=== PATIENT | male | born 1975 | race Caucasian/White ===

== ENCOUNTER 2021-08-28 14:16 | Inpatient (IN) | payer MEDICAID ==
[~2021-08-28] VITALS: Ht 188 cm; Wt 178.0 kg
[2021-08-28] MEDS ORDERED: DiphenhydrAMINE HCL 50 MG/ML VIAL IM ONE (14:45)
[2021-08-28] MEDS ORDERED: HALOPERIDOL LACTATE 5 MG/ML VIAL IM ONE (14:45)
[2021-08-28] MEDS ORDERED: LORazepam 2 MG/ML VIAL IM ONE (14:45)
[2021-08-28 15:42] LABS: COVID AG,FIA SOURCE NASOPHARYNGEAL
[2021-08-28] MEDS ORDERED: VANCOMYCIN HCL 1 GM/D5% WATER 200 ML IV ONE (15:45)
[2021-08-28 16:18] LABS: BASOPHILS % (AUTO) 0.4 % (0.0-2.0); EOSINOPHILS % (AUTO) 2.1 % (1.0-6.0); HEMATOCRIT 39.8 % (41-53); HEMOGLOBIN 13.4 g/dL (13.5-17.5); LYMPHOCYTES # (AUTO) 1.5 K/uL (1.0-4.8); LYMPHOCYTES % (AUTO) 20.2 % (22.0-44.0); MEAN CORPUSCULAR HEMOGLOBIN 29.7 pg (26.0-34.0); MEAN CORPUSCULAR HGB CONC 33.5 G/dL (31.0-37.0); MEAN CORPUSCULAR VOLUME 89 fL (80-100); MONOCYTES # (AUTO) 0.7 K/uL (0.1-1.0); MONOCYTES % (AUTO) 9.3 % (2.0-9.0); NEUTROPHILS # (AUTO) 5.2 K/uL (1.8-7.7); PLATELET COUNT (AUTO) 298 K/uL (150-450); RED CELL DISTRIBUTION WIDTH 14.1 % (11.5-14.5)
[2021-08-28 16:39] LABS: B-TYPE NATRIURETIC PEPTIDE 9 pg/mL (0-100)
[2021-08-28 16:41] LABS: ANION GAP 7 mmol/L (8-16); CALCIUM, TOTAL 9.1 mg/dL (8.8-10.5); CARBON DIOXIDE 28 mmol/L (22-29); CHLORIDE 104 mmol/L (98-107); GLOMERULAR FILTR. RATE CALC > 60 mL/min (>60); GLUCOSE,RANDOM 112 mg/dL (70-110); POTASSIUM 3.6 mmol/L (3.5-5.1); SODIUM SERUM 139 mmol/L (136-145); UREA NITROGEN, BLOOD 10 mg/dL (7-18)
[2021-08-28 16:56] LABS: ALANINE AMINOTRANSFERASE 18 U/L (12-78); ALBUMIN 3.5 g/dL (3.4-5.0); ALKALINE PHOSPHATASE 62 U/L (46-116); ASPARTATE AMINOTRANSFERASE 15 U/L (15-37); BILIRUBIN,TOTAL 0.4 mg/dL (0.1-1.0); C-REACTIVE PROTEIN QUANT 2.75 mg/dL (0.00-0.30); FREE T4 (FREE THYROXINE) 1.37 ng/dL (0.76-1.46); THYROID STIMULATING HORMONE 1.88 uIU/mL (0.36-3.74); TOTAL PROTEIN, SERUM 7.8 g/dL (6.4-8.2)
[2021-08-28 19:12] LABS: ERYTHROCYTE SEDIMENTATION RATE 24 MM/HR (0-15)
[2021-08-28] MEDS ORDERED: DOXYCYCLINE HYCLATE 100 MG TABLET PO ONE (19:15)
[2021-08-28 21:15] LABS: AMPHET/METH SCREEN,URINE POSITIVE (NEGATIVE); BARBITURATE SCREEN, URINE NEGATIVE (NEGATIVE); BENZODIAZEPINES SCREEN,URINE NEGATIVE (NEGATIVE); CANNABINOID SCREEN,URINE NEGATIVE (NEGATIVE); COCAINE SCREEN,URINE NEGATIVE (NEGATIVE); METHADONE SCREEN, URINE NEGATIVE (NEGATIVE); OPIATE SCREEN,URINE NEGATIVE (NEGATIVE)
[2021-08-28 21:16] LABS: PHENCYCLIDINE SCREEN,URINE NEGATIVE (NEGATIVE)
[2021-08-28] MEDS ORDERED: 0.9% SODIUM CHLORIDE 10 ML SYRINGE IVP PRN (21:45)
[2021-08-28] MEDS ORDERED: ACETAMINOPHEN 325 MG TABLET PO PRN (22:45)
[2021-08-28] MEDS ORDERED: ONDANSETRON HCL 4 MG/2 ML VIAL IVP PRN (22:45)
[2021-08-28] MEDS ORDERED: HYDROCODONE/ACETAMINOPHEN 5-325 MG TABLET PO PRN (22:45)
[2021-08-28] MEDS ORDERED: MORPHINE SULFATE 2 MG/ML SYRINGE IVP PRN (22:45)
[2021-08-28] MEDS ORDERED: MAGNESIUM HYDROXIDE SUSPENSION 30 ML UDCUP PO PRN (22:45)
[2021-08-28] MEDS ORDERED: BISACODYL 10 MG RECTAL RECTAL SUPPOSITORY PR PRN (22:45)
[2021-08-28] MEDS ORDERED: ZOLPIDEM TARTRATE 5 MG TABLET PO PRN (22:45)
[2021-08-28] MEDS ORDERED: VANCOMYCIN HCL 1.25 GM in DEXTROSE 5%-WATER 250 ML IV ONE (23:15)
[2021-08-29] MEDS: HEPARIN SODIUM,PORCINE 5,000 UNITS/ML VIAL SQ SCH ×4 (00:03→23:27)
[2021-08-29 05:41] LABS: BASOPHILS % (AUTO) 0.5 % (0.0-2.0); EOSINOPHILS % (AUTO) 3.9 % (1.0-6.0); HEMATOCRIT 39.6 % (41-53); HEMOGLOBIN 13.3 g/dL (13.5-17.5); LYMPHOCYTES # (AUTO) 1.6 K/uL (1.0-4.8); LYMPHOCYTES % (AUTO) 22.3 % (22.0-44.0); MEAN CORPUSCULAR HEMOGLOBIN 29.5 pg (26.0-34.0); MEAN CORPUSCULAR HGB CONC 33.5 G/dL (31.0-37.0); MEAN CORPUSCULAR VOLUME 88 fL (80-100); MONOCYTES # (AUTO) 0.7 K/uL (0.1-1.0); MONOCYTES % (AUTO) 9.5 % (2.0-9.0); NEUTROPHILS # (AUTO) 4.5 K/uL (1.8-7.7); NEUTROPHILS % (AUTO) 63.8 % (40.0-70.0); PLATELET COUNT (AUTO) 275 K/uL (150-450)
[2021-08-29 05:48] LABS: ALANINE AMINOTRANSFERASE 15 U/L (12-78); ALKALINE PHOSPHATASE 53 U/L (46-116); ANION GAP 5 mmol/L (8-16); ASPARTATE AMINOTRANSFERASE 24 U/L (15-37); BILIRUBIN,TOTAL 0.4 mg/dL (0.1-1.0); CALCIUM, TOTAL 8.6 mg/dL (8.8-10.5); CARBON DIOXIDE 32 mmol/L (22-29); CHLORIDE 105 mmol/L (98-107); CREATININE 0.94 mg/dL (0.60-1.30); GLOMERULAR FILTR. RATE CALC > 60 mL/min (>60); GLUCOSE,RANDOM 116 mg/dL (70-110); POTASSIUM 3.6 mmol/L (3.5-5.1); SODIUM SERUM 142 mmol/L (136-145); UREA NITROGEN, BLOOD 6 mg/dL (7-18)
[2021-08-29 08:30] VITALS: BP 131/84
[2021-08-29] MEDS: DOCUSATE SODIUM 100 MG CAPSULE PO SCH ×2 (09:17→20:22)
[2021-08-29] MEDS ORDERED: SODIUM CHLORIDE 0.9% 250 ML IV ONE (09:17)
[2021-08-29] MEDS: VANCOMYCIN HCL 1.25 GM in DEXTROSE 5%-WATER 250 ML IV SCH ×3 (09:18→23:27)
[2021-08-29] MEDS: PANTOPRAZOLE SODIUM 40 MG DR TABLET PO SCH (09:18)
[2021-08-29 11:00] VITALS: BP 128/82
[2021-08-29 15:31] VITALS: BP 142/74
[2021-08-29 19:30] VITALS: BP 131/94
[2021-08-30 05:15] VITALS: BP 131/91
[2021-08-30 07:50] LABS: ANION GAP 6 mmol/L (8-16); CALCIUM, TOTAL 8.8 mg/dL (8.8-10.5); CARBON DIOXIDE 30 mmol/L (22-29); CHLORIDE 107 mmol/L (98-107); CREATININE 0.86 mg/dL (0.60-1.30); GLOMERULAR FILTR. RATE CALC > 60 mL/min (>60); GLUCOSE,RANDOM 99 mg/dL (70-110); POTASSIUM 3.7 mmol/L (3.5-5.1); SODIUM SERUM 143 mmol/L (136-145); UREA NITROGEN, BLOOD 7 mg/dL (7-18); VANCOMYCIN,RANDOM 12.6 mcg/mL (25.0-50.0)
[2021-08-30] MEDS: HEPARIN SODIUM,PORCINE 5,000 UNITS/ML VIAL SQ SCH ×3 (08:09→23:27)
[2021-08-30] MEDS: PANTOPRAZOLE SODIUM 40 MG DR TABLET PO SCH (08:09)
[2021-08-30] MEDS: VANCOMYCIN HCL 1.25 GM in DEXTROSE 5%-WATER 250 ML IV SCH ×3 (08:09→23:27)
[2021-08-30] MEDS: DOCUSATE SODIUM 100 MG CAPSULE PO SCH ×2 (08:09→19:45)
[2021-08-30 08:18] VITALS: BP 137/94
[2021-08-30 15:58] VITALS: BP 141/91
[2021-08-30 19:49] VITALS: BP 155/94
[2021-08-30] MEDS ORDERED: SODIUM CHLORIDE 0.9% 500 ML IV ONE (21:01)
[2021-08-31 04:40] VITALS: BP 162/106
[2021-08-31 06:45] VITALS: BP 153/104
[2021-08-31] MEDS: VANCOMYCIN HCL 1.25 GM in DEXTROSE 5%-WATER 250 ML IV SCH (07:19)
[2021-08-31] MEDS: HEPARIN SODIUM,PORCINE 5,000 UNITS/ML VIAL SQ SCH (07:19)
[2021-08-31 07:35] VITALS: BP 148/88
[2021-08-31] MEDS: PANTOPRAZOLE SODIUM 40 MG DR TABLET PO SCH (08:34)
[2021-08-31] MEDS: DOCUSATE SODIUM 100 MG CAPSULE PO SCH (08:34)
[2021-08-31] MEDS ORDERED: AmLODIPine BESYLATE 5 MG TABLET PO SCH (09:00)
[2021-08-31 09:30] LABS: ANION GAP 6 mmol/L (8-16); CALCIUM, TOTAL 9.2 mg/dL (8.8-10.5); CARBON DIOXIDE 29 mmol/L (22-29); CHLORIDE 103 mmol/L (98-107); CREATININE 0.87 mg/dL (0.60-1.30); GLOMERULAR FILTR. RATE CALC > 60 mL/min (>60); GLUCOSE,RANDOM 125 mg/dL (70-110); SODIUM SERUM 138 mmol/L (136-145); UREA NITROGEN, BLOOD 5 mg/dL (7-18)
== END 2021-08-31 10:00 | disposition left against medical advice (07) | DRG 383 ==
LOC: EMS 14:16 → 6N 08-29 05:57
PROVIDERS: ADMIT Internal Medicine; ATTEND Internal Medicine
DX: L03.115 Cellulitis of right lower limb (principal); R45.851 Suicidal ideations; F33.2 Major depressive disorder, recurrent severe without psychotic features; Z68.43 Body mass index [BMI] 50.0-59.9, adult; D64.9 Anemia, unspecified; Z53.29 Procedure and treatment not carried out because of patient's decision for other reasons; Z20.822 Contact with and (suspected) exposure to COVID-19; F15.10 Other stimulant abuse, uncomplicated; F20.9 Schizophrenia, unspecified; E66.01 Morbid (severe) obesity due to excess calories; Z78.1 Physical restraint status
CPT/HCPCS: 80048; 80053; 80202; 83880; 84439; 84443; 85025; 85379; 85651; 86140; 87040; 93971; 99291; G0480; J1200; J1630; J1644; J2060; J3370; J7040; J7050; J7060

== ENCOUNTER 2021-09-02 12:27 | Emergency (ER) | payer MEDICAID ==
[~2021-09-02] VITALS: Ht 200.7 cm; Wt 171.4 kg
[2021-09-02 12:31] VITALS: BP 139/97
[2021-09-02] MEDS ORDERED: DOXYCYCLINE HYCLATE 100 MG TABLET PO ONE (13:45)
[2021-09-02] MEDS ORDERED: BACITRACIN 0.9 GM PACKET OINTMENT TP ONE (14:15)
== END 2021-09-02 14:26 | disposition home or self-care (01) ==
LOC: EMS 12:41
DX: L03.115 Cellulitis of right lower limb (principal); F15.10 Other stimulant abuse, uncomplicated; J45.909 Unspecified asthma, uncomplicated; I10 Essential (primary) hypertension
CPT/HCPCS: 99283

== ENCOUNTER 2021-10-27 01:03 | Inpatient (IN) | payer MEDICAID ==
[~2021-10-27] VITALS: Ht 188 cm; Wt 172.4 kg
[2021-10-27 01:34] LABS: BASOPHILS % (AUTO) 0.6 % (0.0-2.0); EOSINOPHILS % (AUTO) 2.3 % (1.0-6.0); HEMOGLOBIN 13.5 g/dL (13.5-17.5); LYMPHOCYTES # (AUTO) 2.2 K/uL (1.0-4.8); LYMPHOCYTES % (AUTO) 21.9 % (22.0-44.0); MEAN CORPUSCULAR HEMOGLOBIN 28.5 pg (26.0-34.0); MEAN CORPUSCULAR HGB CONC 32.9 G/dL (31.0-37.0); MEAN CORPUSCULAR VOLUME 87 fL (80-100); MONOCYTES # (AUTO) 0.8 K/uL (0.1-1.0); MONOCYTES % (AUTO) 8.3 % (2.0-9.0); NEUTROPHILS # (AUTO) 6.6 K/uL (1.8-7.7); NEUTROPHILS % (AUTO) 66.9 % (40.0-70.0); PLATELET COUNT (AUTO) 291 K/uL (150-450); RED BLOOD CELL COUNT(AUTO) 4.74 MIL/uL (4.50-5.90); RED CELL DISTRIBUTION WIDTH 15.7 % (11.5-14.5)
[2021-10-27 01:47] LABS: ANION GAP 8 mmol/L (8-16); CALCIUM, TOTAL 8.7 mg/dL (8.8-10.5); CARBON DIOXIDE 28 mmol/L (22-29); CHLORIDE 105 mmol/L (98-107); CREATININE 0.92 mg/dL (0.60-1.30); GLOMERULAR FILTR. RATE CALC > 60 mL/min (>60); GLUCOSE,RANDOM 110 mg/dL (70-110); POTASSIUM 3.5 mmol/L (3.5-5.1); SODIUM SERUM 141 mmol/L (136-145); UREA NITROGEN, BLOOD 12 mg/dL (7-18)
[2021-10-27 01:52] LABS: ALANINE AMINOTRANSFERASE 18 U/L (12-78); ALBUMIN 3.5 g/dL (3.4-5.0); ALKALINE PHOSPHATASE 48 U/L (46-116); ASPARTATE AMINOTRANSFERASE 14 U/L (15-37); BILIRUBIN,TOTAL 0.5 mg/dL (0.1-1.0); TOTAL PROTEIN, SERUM 7.1 g/dL (6.4-8.2)
[2021-10-27 01:57] LABS: COVID AG,FIA SOURCE NASOPHARYNGEAL
[2021-10-27] MEDS ORDERED: DiphenhydrAMINE HCL 25 MG CAPSULE PO ONE (02:15)
[2021-10-27] MEDS ORDERED: LORazepam 1 MG TABLET PO ONE (02:15)
[2021-10-27] MEDS ORDERED: ZOLPIDEM TARTRATE 10 MG TABLET PO PRN (02:15)
[2021-10-27] MEDS ORDERED: HALOPERIDOL 5 MG TABLET PO ONE (02:15)
[2021-10-27] MEDS ORDERED: MAGNESIUM HYDROXIDE SUSPENSION 30 ML UDCUP PO PRN (12:15)
[2021-10-27] MEDS ORDERED: GuaiFENesin/D-METHORPHAN [SUGAR-FREE] 200-20MG/10 ML SYRUP UDCUP PO PRN (12:15)
[2021-10-27] MEDS ORDERED: PROMETHAZINE HCL 25 MG TABLET PO PRN (12:15)
[2021-10-27] MEDS ORDERED: MAG HYDROX/AL HYDROX/SIMETH ES 30 ML SUSPENSION UDCUP PO PRN (12:15)
[2021-10-27] MEDS ORDERED: HydrOXYzine PAMOATE 50 MG CAPSULE PO PRN (12:15)
[2021-10-27] MEDS ORDERED: LOPERAMIDE HCL 2 MG CAPSULE PO PRN (12:15)
[2021-10-27] MEDS ORDERED: ACETAMINOPHEN 325 MG TABLET PO PRN (12:15)
[2021-10-27] MEDS ORDERED: TUBERCULIN, PURIFIED PROTEIN DERIVATIVE 5 TU/0.1 ML SYRINGE ID ONE (12:15)
[2021-10-27] MEDS: GABAPENTIN 300 MG CAPSULE PO SCH ×3 (13:00→20:46)
[2021-10-27 13:43] VITALS: BP 150/100
[2021-10-27 14:05] VITALS: BP 150/100
[2021-10-27] MEDS ORDERED: INFLUENZA VIRUS VACCINE QVS 2021-22 (6MO+)/PF 60 MCG/0.5 ML SYRINGE IM. ONE (14:15)
[2021-10-27] MEDS ORDERED: PNEUMOCOCCAL VACCINE POLYVALENT 0.5 ML VIAL [PPSV23] IM. ONE (16:15)
[2021-10-27 16:24] VITALS: BP 140/95
[2021-10-27] MEDS: THIAMINE 100 MG TABLET PO SCH (16:36)
[2021-10-27] MEDS: MELATONIN 5 MG TABLET PO SCH (20:45)
[2021-10-27] MEDS: DIVALPROEX SODIUM 500 MG ER TABLET PO SCH (20:45)
[2021-10-27] MEDS ORDERED: OLANZapine 5 MG RAPDIS TABLET PO SCH (21:00)
[2021-10-28 04:57] VITALS: BP 138/95
[2021-10-28 07:33] LABS: CHOL/HDL RATIO 2.8 (4.2-7.3); FREE T4 (FREE THYROXINE) 1.34 ng/dL (0.76-1.46); THYROID STIMULATING HORMONE 1.31 uIU/mL (0.36-3.74)
[2021-10-28 07:44] LABS: HEMOGLOBIN A1C 5.9 % (3.8-5.6)
[2021-10-28] MEDS: VITAMINS A & D 113 GM OINTMENT TP SCH (08:36)
[2021-10-28] MEDS: NALTREXONE HCL 50 MG TABLET PO SCH (08:36)
[2021-10-28] MEDS: OMEGA-3/DHA/EPA/FISH OIL 1,000 MG CAPSULE PO SCH (08:36)
[2021-10-28] MEDS: FOLIC ACID 1 MG TABLET PO SCH (08:36)
[2021-10-28] MEDS: MULTIVITAMINS WITH MINERALS, THERAPEUTIC TABLET PO SCH (08:36)
[2021-10-28] MEDS: THIAMINE 100 MG TABLET PO SCH ×2 (08:36→16:34)
[2021-10-28] MEDS: LORazepam 2 MG TABLET PO PRN (08:36)
[2021-10-28] MEDS: GABAPENTIN 300 MG CAPSULE PO SCH ×4 (08:36→20:02)
[2021-10-28 09:00] VITALS: BP 127/80
[2021-10-28 16:33] VITALS: BP 140/92
[2021-10-28] MEDS: DIVALPROEX SODIUM 500 MG ER TABLET PO SCH (20:01)
[2021-10-28] MEDS: MELATONIN 5 MG TABLET PO SCH (20:01)
[2021-10-28] MEDS: OLANZapine 5 MG RAPDIS TABLET PO SCH (20:03)
[2021-10-29 06:38] VITALS: BP 136/92
[2021-10-29 08:17] VITALS: BP 154/99
[2021-10-29] MEDS: GABAPENTIN 300 MG CAPSULE PO SCH ×4 (08:20→20:20)
[2021-10-29] MEDS: OMEGA-3/DHA/EPA/FISH OIL 1,000 MG CAPSULE PO SCH (08:20)
[2021-10-29] MEDS: FOLIC ACID 1 MG TABLET PO SCH (08:20)
[2021-10-29] MEDS: MULTIVITAMINS WITH MINERALS, THERAPEUTIC TABLET PO SCH (08:20)
[2021-10-29] MEDS: NALTREXONE HCL 50 MG TABLET PO SCH (08:20)
[2021-10-29] MEDS: THIAMINE 100 MG TABLET PO SCH ×2 (08:20→17:06)
[2021-10-29] MEDS: LORazepam 2 MG TABLET PO PRN (08:21)
[2021-10-29] MEDS: VITAMINS A & D 113 GM OINTMENT TP SCH (08:21)
[2021-10-29] MEDS: OLANZapine 5 MG RAPDIS TABLET PO PRN (12:42)
[2021-10-29 16:24] VITALS: BP 141/97
[2021-10-29] MEDS: MELATONIN 5 MG TABLET PO SCH (20:16)
[2021-10-29] MEDS: OLANZapine 5 MG RAPDIS TABLET PO SCH (20:17)
[2021-10-29] MEDS: DIVALPROEX SODIUM 500 MG ER TABLET PO SCH (20:17)
[2021-10-30 06:07] VITALS: BP 186/90
[2021-10-30] MEDS: THIAMINE 100 MG TABLET PO SCH ×2 (08:10→17:00)
[2021-10-30] MEDS: GABAPENTIN 300 MG CAPSULE PO SCH ×2 (08:10→12:29)
[2021-10-30] MEDS: MULTIVITAMINS WITH MINERALS, THERAPEUTIC TABLET PO SCH (08:10)
[2021-10-30] MEDS: LORazepam 2 MG TABLET PO PRN ×2 (08:10→12:29)
[2021-10-30] MEDS: FOLIC ACID 1 MG TABLET PO SCH (08:10)
[2021-10-30] MEDS: OMEGA-3/DHA/EPA/FISH OIL 1,000 MG CAPSULE PO SCH (08:10)
[2021-10-30] MEDS: NALTREXONE HCL 50 MG TABLET PO SCH (08:10)
[2021-10-30] MEDS: VITAMINS A & D 113 GM OINTMENT TP SCH (08:11)
[2021-10-30 08:59] VITALS: BP 169/110
[2021-10-30] MEDS ORDERED: CloNIDine HCL 0.1 MG TABLET PO SCH (09:00)
[2021-10-30] MEDS ORDERED: CloNIDine HCL 0.1 MG TABLET PO PRN (10:15)
[2021-10-30] MEDS ORDERED: HALOPERIDOL LACTATE 5 MG/ML VIAL IM ONE (13:30)
[2021-10-30] MEDS ORDERED: DiphenhydrAMINE HCL 50 MG/ML VIAL IM ONE (13:30)
[2021-10-30] MEDS ORDERED: LORazepam 2 MG/ML VIAL IM ONE (13:30)
[2021-10-30 16:11] VITALS: BP 140/94
[2021-10-30] MEDS: GABAPENTIN 400 MG CAPSULE PO SCH ×2 (17:00→20:54)
[2021-10-30] MEDS: OLANZapine 5 MG RAPDIS TABLET PO SCH (20:54)
[2021-10-30] MEDS: MELATONIN 5 MG TABLET PO SCH (20:54)
[2021-10-30] MEDS: DIVALPROEX SODIUM 500 MG ER TABLET PO SCH (20:54)
[2021-10-31 04:25] VITALS: BP 136/88
[2021-10-31] MEDS: FOLIC ACID 1 MG TABLET PO SCH (08:05)
[2021-10-31] MEDS: OMEGA-3/DHA/EPA/FISH OIL 1,000 MG CAPSULE PO SCH (08:05)
[2021-10-31] MEDS: VITAMINS A & D 113 GM OINTMENT TP SCH (08:05)
[2021-10-31] MEDS: MULTIVITAMINS WITH MINERALS, THERAPEUTIC TABLET PO SCH (08:05)
[2021-10-31] MEDS: GABAPENTIN 400 MG CAPSULE PO SCH ×4 (08:05→20:24)
[2021-10-31] MEDS: NALTREXONE HCL 50 MG TABLET PO SCH (08:05)
[2021-10-31] MEDS: THIAMINE 100 MG TABLET PO SCH ×2 (08:05→17:13)
[2021-10-31 08:34] VITALS: BP 158/103
[2021-10-31] MEDS: LORazepam 2 MG TABLET PO PRN ×2 (08:35→17:13)
[2021-10-31 09:07] VITALS: BP 121/83
[2021-10-31 16:11] VITALS: BP 130/82
[2021-10-31] MEDS: OLANZapine 5 MG RAPDIS TABLET PO PRN (17:13)
[2021-10-31] MEDS: OLANZapine 5 MG RAPDIS TABLET PO SCH (20:24)
[2021-10-31] MEDS: DIVALPROEX SODIUM 500 MG ER TABLET PO SCH (20:24)
[2021-10-31] MEDS: MELATONIN 5 MG TABLET PO SCH (20:24)
[2021-11-01 01:44] VITALS: BP 134/89
[2021-11-01 08:22] VITALS: BP 143/99
[2021-11-01 08:30] VITALS: BP 136/86
[2021-11-01] MEDS: MULTIVITAMINS WITH MINERALS, THERAPEUTIC TABLET PO SCH (08:31)
[2021-11-01] MEDS: FOLIC ACID 1 MG TABLET PO SCH (08:31)
[2021-11-01] MEDS: THIAMINE 100 MG TABLET PO SCH ×2 (08:31→16:47)
[2021-11-01] MEDS: VITAMINS A & D 113 GM OINTMENT TP SCH (08:31)
[2021-11-01] MEDS: OMEGA-3/DHA/EPA/FISH OIL 1,000 MG CAPSULE PO SCH (08:31)
[2021-11-01] MEDS: GABAPENTIN 400 MG CAPSULE PO SCH ×4 (08:31→20:03)
[2021-11-01] MEDS: NALTREXONE HCL 50 MG TABLET PO SCH (08:31)
[2021-11-01] MEDS: LORazepam 2 MG TABLET PO PRN (08:32)
[2021-11-01 16:27] VITALS: BP 149/96
[2021-11-01] MEDS: DIVALPROEX SODIUM 500 MG ER TABLET PO SCH (20:03)
[2021-11-01] MEDS: MELATONIN 5 MG TABLET PO SCH (20:03)
[2021-11-01] MEDS: OLANZapine 5 MG RAPDIS TABLET PO SCH (20:03)
[2021-11-02 03:43] VITALS: BP 136/89
[2021-11-02] MEDS: NALTREXONE HCL 50 MG TABLET PO SCH (08:00)
[2021-11-02] MEDS: MULTIVITAMINS WITH MINERALS, THERAPEUTIC TABLET PO SCH (08:00)
[2021-11-02] MEDS: LORazepam 2 MG TABLET PO PRN (08:00)
[2021-11-02] MEDS: FOLIC ACID 1 MG TABLET PO SCH (08:00)
[2021-11-02] MEDS: THIAMINE 100 MG TABLET PO SCH ×2 (08:00→17:49)
[2021-11-02] MEDS: GABAPENTIN 400 MG CAPSULE PO SCH ×2 (08:00→12:07)
[2021-11-02] MEDS: OMEGA-3/DHA/EPA/FISH OIL 1,000 MG CAPSULE PO SCH (08:00)
[2021-11-02 08:36] VITALS: BP 150/104
[2021-11-02] MEDS: VITAMINS A & D 113 GM OINTMENT TP SCH (08:56)
[2021-11-02] MEDS: OLANZapine 5 MG RAPDIS TABLET PO PRN ×2 (13:00→20:10)
[2021-11-02 16:12] VITALS: BP 140/95
[2021-11-02] MEDS ORDERED: LURASIDONE HCL 40 MG TABLET PO ONE (16:45)
[2021-11-02] MEDS: GABAPENTIN 100 MG CAPSULE PO SCH ×2 (18:33→20:10)
[2021-11-02] MEDS: MELATONIN 5 MG TABLET PO SCH (20:09)
[2021-11-02] MEDS: DIVALPROEX SODIUM 500 MG ER TABLET PO SCH (20:10)
[2021-11-03] MEDS: LORazepam 2 MG TABLET PO PRN ×2 (02:05→08:06)
[2021-11-03 04:50] VITALS: BP 143/90
[2021-11-03] MEDS ORDERED: LURASIDONE HCL 40 MG TABLET PO SCH (07:00)
[2021-11-03] MEDS: NALTREXONE HCL 50 MG TABLET PO SCH (08:05)
[2021-11-03] MEDS: OMEGA-3/DHA/EPA/FISH OIL 1,000 MG CAPSULE PO SCH (08:05)
[2021-11-03] MEDS: THIAMINE 100 MG TABLET PO SCH ×2 (08:05→16:07)
[2021-11-03] MEDS: FOLIC ACID 1 MG TABLET PO SCH (08:05)
[2021-11-03] MEDS: MULTIVITAMINS WITH MINERALS, THERAPEUTIC TABLET PO SCH (08:05)
[2021-11-03] MEDS: GABAPENTIN 100 MG CAPSULE PO SCH ×3 (08:05→16:07)
[2021-11-03 08:08] VITALS: BP 146/90
[2021-11-03] MEDS: VITAMINS A & D 113 GM OINTMENT TP SCH (09:03)
[2021-11-03] MEDS ORDERED: DIVA-80 PO (13:41)
[2021-11-03] MEDS ORDERED: MELA5TAB40 PO (13:41)
[2021-11-03] MEDS ORDERED: LURA40TA2 PO (13:41)
[2021-11-03] MEDS ORDERED: GABA-1216 PO (13:41)
[2021-11-03] MEDS ORDERED: OMEG-135 PO (13:41)
[2021-11-03] MEDS ORDERED: NALT50TA PO (13:41)
== END 2021-11-03 16:20 | disposition home or self-care (01) | DRG 750 ==
LOC: EMS 01:05 → B3A 09:26
PROVIDERS: ADMIT Psychiatry & Neurology Psychiatry; ATTEND Psychiatry & Neurology Psychiatry
DX: F25.0 Schizoaffective disorder, bipolar type (principal); G40.909 Epilepsy, unspecified, not intractable, without status epilepticus; E66.9 Obesity, unspecified; F17.210 Nicotine dependence, cigarettes, uncomplicated; F41.9 Anxiety disorder, unspecified; F15.10 Other stimulant abuse, uncomplicated; F12.10 Cannabis abuse, uncomplicated; J44.9 Chronic obstructive pulmonary disease, unspecified; I10 Essential (primary) hypertension; J45.909 Unspecified asthma, uncomplicated; Z20.822 Contact with and (suspected) exposure to COVID-19; Z91.19 Patient's noncompliance with other medical treatment and regimen; Z65.3 Problems related to other legal circumstances; Z59.9 Problem related to housing and economic circumstances, unspecified; Z63.9 Problem related to primary support group, unspecified; Z55.9 Problems related to education and literacy, unspecified; Z59.00 Homelessness unspecified; Z68.42 Body mass index [BMI] 45.0-49.9, adult
CPT/HCPCS: 80053; 80061; 80164; 83036; 84439; 84443; 85025; 86592; 99285; G0480; J1200; J1630; J2060; Q9967